=== PATIENT | male | born 1950 | race Caucasian/White ===

== ENCOUNTER 2021-11-12 19:06 | Observation (INO) | payer OTHER ==
[~2021-11-12] VITALS: Ht 167.6 cm; Wt 61.2 kg
[2021-11-12] MEDS ORDERED: TAMSULOSIN HCL0.4 M1 PO (19:39)
[2021-11-12] MEDS ORDERED: OXYC5 PO (19:39)
[2021-11-12 20:02] LABS: BASOPHILS ABSOLUTE AUTO 0.09 K/mm3 (0.00-0.23); BASOPHILS PERCENT AUTO 1 % (0-2); EOSINOPHILS PERCENT AUTO 3 % (0-6); Hematocrit 42.3 % (37.0-53.0); Hemoglobin 14.9 g/dL (13.5-17.5); IMMATURE GRAN ABSOLUTE AUTO 0.06 K/mm3 (0.00-0.10); IMMATURE GRAN PERCENT AUTO 1 % (0-1); LYMPHOCYTES ABSOLUTE AUTO 2.65 K/mm3 (0.84-5.20); LYMPHOCYTES PERCENT AUTO 21 % (21-46); MONOCYTES ABSOLUTE AUTO 0.75 K/mm3 (0.16-1.47); MONOCYTES PERCENT AUTO 6 % (4-13); Mean Corpuscular HGB 33.3 pg (26.0-34.0); Mean Corpuscular HGB Conc 35.2 g/dL (31.5-36.5); Mean Corpuscular Volume 94 fL (80-100); Mean Platelet Volume 8.6 fL (9.1-12.4); NEUTROPHILS ABSOLUTE AUTO 8.94 K/mm3 (1.96-9.15); NEUTROPHILS PERCENT AUTO 69 % (41-73); Platelet Count 381 K/mm3 (150-400); RDW Coefficient Variation 12.5 % (11.7-14.2); RDW Standard Deviation 43.8 fL (35.1-46.3); Red Blood Cell Count 4.48 M/mm3 (4.30-5.90); White Blood Cell Count 12.89 K/mm3 (4.00-11.30)
[2021-11-12 20:24] LABS: Albumin, Blood 3.4 g/dL (3.4-5.0); Albumin/Globulin Ratio 0.8 (0.8-1.8); Bilirubin, Total 0.3 mg/dL (0.1-1.0); Bun/Creatinine Ratio 22.9 (12.0-20.0); Calcium, Blood 9.4 mg/dL (8.5-10.1); Creatinine, Blood 0.57 mg/dL (0.60-1.20); Globulin, Blood 4.1 g/dL (2.2-4.0); Potassium, Blood 4.1 mmol/L (3.5-5.5); Total Protein, Blood 7.5 g/dL (6.4-8.2)
[2021-11-12] MEDS ORDERED: LOW DOSE ASPIRI81 M1 PO (23:57)
[2021-11-13 01:59] LABS: Hematocrit 42.9 % (37.0-53.0); Mean Corpuscular HGB 33.2 pg (26.0-34.0); Mean Corpuscular Volume 95 fL (80-100); Mean Platelet Volume 8.4 fL (9.1-12.4); Platelet Count 368 K/mm3 (150-400); RDW Coefficient Variation 12.5 % (11.7-14.2); RDW Standard Deviation 43.7 fL (35.1-46.3); Red Blood Cell Count 4.52 M/mm3 (4.30-5.90); White Blood Cell Count 21.22 K/mm3 (4.00-11.30)
[2021-11-13 02:27] LABS: Albumin, Blood 3.4 g/dL (3.4-5.0); Albumin/Globulin Ratio 0.9 (0.8-1.8); Bilirubin, Total 0.5 mg/dL (0.1-1.0); Creatinine, Blood 0.54 mg/dL (0.60-1.20); Globulin, Blood 3.7 g/dL (2.2-4.0); Potassium, Blood 3.7 mmol/L (3.5-5.5); Total Protein, Blood 7.1 g/dL (6.4-8.2)
[2021-11-13] MEDS ORDERED: ATOR40TA PO (04:06)
[2021-11-13] MEDS ORDERED: BISA5EC PO (04:06)
[2021-11-13] MEDS ORDERED: CILO100 PO (04:07)
[2021-11-13] MEDS ORDERED: CYCL10 PO (04:08)
[2021-11-13] MEDS ORDERED: METR500 PO (04:09)
[2021-11-13] MEDS ORDERED: OMEP20ER PO (04:09)
--- NOTE | 2021-11-13 04:55 | NUR ---
SHIFT SUMMARY: PATIENT ADMITTED FROM ED FOR SBO. NG TO JERILYN PHAN, TAPE SATURATED WITH BLOOD. NEW SECUREMTN DEVICE APPLIED. PATIENT COMPLAINS OF SLIGHT DISCOMFORT TO ABDOMEN STATES "NOTHING LIKE IT WAS EARLEIR" SOME NAUSEA EMESIS BAG AT BEDSIDE. NO EMESIS OCCURANCE. CXR ORDERED TO CONFIRM NG PLACEMENT, PER MD NO NG IN STOMACH. VISUAL INSPECTION OF MOUTH REVELAED COILED NG INTO MOUTH. NG REMOVED PATIENT REFUSED INSERTION OF NEW TUBE, REQUESTED TO SLEEP "YOU'RE NOT DOING IT RIGHT NOW, SINCE I GOT UP HERE YOU GUYS HAVE BEEN DOING THINGS TO ME. I JUST NEED TO SLEEP" RATIONALE FR NG EXPLAINED TO PATIENT HE STATED WE COULD REVISIT IN THE AM BUT RIGHT NOW SYMPTOMS HAVE SUBSIDED AND HE WANTED TO REST. COLOSTOMY TO LUQ, SOFT BROWN STOOL OUTPUT. MIDLINE INCISION CLOSED WITH BRAD SOME OPEN AREAS. PHOTO IN CHART. WOUND CLEANSED AND DRESSED. NS @200/HR.
[2021-11-13 06:25] LABS: Source, Urine Clean Catch
[2021-11-13 06:29] LABS: Appearance, Urine Clear (Clear); Bilirubin, Urine Neg (Neg); Blood, Urine Neg (Neg); Color, Urine Yellow (P-Yellow); Glucose Qualitative, Urine Neg (Neg); Ketones, Urine Neg (Neg); Leukocyte Esterase, Urine Neg (Neg); Nitrite, Urine Neg (Neg); Protein, Urine Neg (Neg); Specific Gravity, Urine 1.015 (1.003-1.022); Urobilinogen, Urine NORM (Normal)
[2021-11-13 11:56] LABS: BASOPHILS ABSOLUTE AUTO 0.06 K/mm3 (0.00-0.23); BASOPHILS PERCENT AUTO 1 % (0-2); EOSINOPHILS ABSOLUTE AUTO 0.34 K/mm3 (0.00-0.68); EOSINOPHILS PERCENT AUTO 3 % (0-6); Hematocrit 39.2 % (37.0-53.0); Hemoglobin 13.6 g/dL (13.5-17.5); IMMATURE GRAN ABSOLUTE AUTO 0.05 K/mm3 (0.00-0.10); IMMATURE GRAN PERCENT AUTO 0 % (0-1); LYMPHOCYTES PERCENT AUTO 13 % (21-46); MONOCYTES ABSOLUTE AUTO 0.87 K/mm3 (0.16-1.47); MONOCYTES PERCENT AUTO 7 % (4-13); Mean Corpuscular HGB 33.6 pg (26.0-34.0); Mean Corpuscular HGB Conc 34.7 g/dL (31.5-36.5); Mean Corpuscular Volume 97 fL (80-100); Mean Platelet Volume 8.5 fL (9.1-12.4); NEUTROPHILS ABSOLUTE AUTO 10.04 K/mm3 (1.96-9.15); NEUTROPHILS PERCENT AUTO 77 % (41-73); Platelet Count 328 K/mm3 (150-400); RDW Coefficient Variation 12.6 % (11.7-14.2); RDW Standard Deviation 45.3 fL (35.1-46.3); Red Blood Cell Count 4.05 M/mm3 (4.30-5.90); White Blood Cell Count 13.06 K/mm3 (4.00-11.30)
--- NOTE | 2021-11-13 13:30 | NUR ---
PT VERY ANXIOUS ABOUT DISCHARGING. KEPT SAYING HE HAD NO REASON TO BE HERE NOW AND HE WAS READY TO GO. ATTEMPTED CALLING DR. SCOTT FOR A RECHECK PRIOR TO DISCHARGING PT BUT HE WAS ADAMENT ABOUT LEAVING. CALLED AND SPOKE WITH DR. SANCHEZ AND RECEIVED OK FOR PT TO LEAVE SINCE I HADN'T RECEIVED A CALL BACK FROM DR. SCOTT. DISCUSSED WITH HIM ADVANCING HIS DIET. REPORTED EMPTYING COLOSTOMY 2X THIS MORNING. DISCHARGE INSTRUCTIONS COMPLETED AND DISCUSSED WITH PT EXPRESSING UNDERSTANDING. TO CURB VIA W/C.
== END 2021-11-13 13:06 | disposition home or self-care (01) ==
LOC: ER 19:06 → MEDS 19:07 → ER 23:07 → MEDS 23:07 → EDBEDREQ 11-13 00:51 → EDBEDREQSVC 11-13 00:54 → MEDS 11-13 01:24
PROVIDERS: Emergency Medicine; Family Medicine; Internal Medicine; ADMIT Internal Medicine
DX: K56.600 Partial intestinal obstruction, unspecified as to cause (principal); R65.10 Systemic inflammatory response syndrome (SIRS) of non-infectious origin without acute organ dysfunction; J98.11 Atelectasis; I73.9 Peripheral vascular disease, unspecified; N40.0 Benign prostatic hyperplasia without lower urinary tract symptoms; Z85.038 Personal history of other malignant neoplasm of large intestine; Z90.49 Acquired absence of other specified parts of digestive tract; Z79.82 Long term (current) use of aspirin; Z79.891 Long term (current) use of opiate analgesic; Z79.899 Other long term (current) drug therapy
CPT/HCPCS: 36415; 71045; 74177; 80053; 81003; 83605; 83690; 85025; 85027; 94760; 96374-59; 96375; 96376; 99285-25; A9270; G0378; J0780; J1170; J2405; J2543; J7030; Q9967